=== PATIENT | male | born 2000 | race Hispanic/Latino ===

== ENCOUNTER 2022-01-24 11:48 | Emergency (ER) | payer OTHER ==
[~2022-01-24] VITALS: Ht 180.3 cm; Wt 103.3 kg
[2022-01-24 15:22] VITALS: BP 131/87
== END 2022-01-24 15:24 | disposition home or self-care (01) ==
LOC: M ED 11:48
DX: S80.912A Unspecified superficial injury of left knee, initial encounter (principal); Y93.02 Activity, running; R20.2 Paresthesia of skin; F17.200 Nicotine dependence, unspecified, uncomplicated

== ENCOUNTER 2024-07-21 22:38 | Emergency (ER) | payer OTHER ==
[~2024-07-21] VITALS: Ht 177.8 cm; Wt 81.8 kg
[2024-07-22 01:24] VITALS: BP 146/66; TEMP 98; O2SAT 96
== END 2024-07-22 01:29 | disposition home or self-care (01) ==
LOC: M ED 22:38
DX: F10.120 Alcohol abuse with intoxication, uncomplicated (principal); F12.10 Cannabis abuse, uncomplicated; F43.10 Post-traumatic stress disorder, unspecified